=== PATIENT | male | born 1990 | race African-American/Black ===

== ENCOUNTER 2024-01-21 09:13 | Emergency (ER) | payer OTHER ==
[2024-01-21 09:19] VITALS: BMI 20.1
[2024-01-21] MEDS ORDERED: KETOROLAC TROMETHAMINE 30 MG/1 ML VIAL ONE (10:02)
[2024-01-21] MEDS: KETOROLAC TROMETHAMINE 30 MG/1 ML VIAL IM ONE (10:07)
[2024-01-21 10:19] LABS: BASO % 0.2 % (0-2.0); EOS % 1.4 % (0-4.5); HEMATOCRIT 41.4 % (35.4-49); HEMOGLOBIN 13.7 GM/dL (11.7-16.9); LYMPH % 8.9 % (8-40); MCH 30.7 pg (25.7-33.7); MCHC 33.1 g/dl (32.0-35.9); MEAN CELL VOLUME 92.9 fl (80-96); MEAN PLT VOLUME 7.9 fl (7.5-11.1); MONO % 6.9 % (3.8-10.2); NEUT % 82.6 % (42.8-82.8); PLATELET COUNT 224 10^3/uL (134-434); RBC 4.46 M/mm3 (4.00-5.60); RDW 13.9 % (11.9-15.9); WHITE BLOOD COUNT 11.1 K/mm3 (4.0-10.0)
[2024-01-21 10:36] LABS: POTASSIUM 3.7 mmol/L (3.5-5.1)
[2024-01-21 10:38] LABS: CALCIUM 8.7 mg/dL (8.5-10.1)
[2024-01-21 10:39] LABS: ALBUMIN 3.5 g/dl (3.4-5.0); BLOOD UREA NITROGEN 12.6 mg/dL (7-18)
[2024-01-21 10:42] LABS: CREATININE 0.8 mg/dL (0.55-1.3)
[2024-01-21 10:43] LABS: TOT PROT 6.4 g/dl (6.4-8.2)
[2024-01-21 10:44] LABS: BILIRUBIN,TOTAL 1.3 mg/dL (0.2-1)
[2024-01-21] MEDS: AMOX TR/POT CLAV 875MG/125MG TABLETS (FP) PO ONE (14:13)
[2024-01-21] MEDS ORDERED: AMOX TR/POT CLAV 875MG/125MG TABLETS (FP) ONE (14:13)
[2024-01-21] MEDS ORDERED: AMPICILLIN NA/SULBACTAM NA 3 GM/100 ML BAG IVPB ONE (15:18)
[2024-01-21] MEDS: AMPICILLIN NA/SULBACTAM NA 3 GM in DEXTROSE 5%-WATER 100 ML IVPB ONE (15:22)
[2024-01-21 16:18] VITALS: BP 117/83; PULSE 73; RESP 20; TEMP 98.3
== END 2024-01-21 16:15 | disposition home or self-care (01) ==
LOC: JERFT 09:13 → JER 09:13
PROC: 3E03329 Introduction of Other Anti-infective into Peripheral Vein, Percutaneous Approach (ICD-10-PCS; principal; 2024-01-21)
PROC: 3E023GC Introduction of Other Therapeutic Substance into Muscle, Percutaneous Approach (ICD-10-PCS; 2024-01-21)
DX: K04.7 Periapical abscess without sinus (principal); K08.89 Other specified disorders of teeth and supporting structures
CPT/HCPCS: 36415; 70487-TC; 80053; 85025; 86140; 99285-25; Q9967